=== PATIENT | male | born 1990 | race Caucasian/White ===

== ENCOUNTER 2017-02-14 09:12 | Emergency (ER) | payer BC, OTHER ==
[2017-02-14 10:01] VITALS: BP 134/83
--- NOTE | 2017-02-14 10:30 | UC ---
Throat Pain/Nasal Booker HPI - HPI Summary HPI Summary: SORE THROAT X 2 DAYS NO FEVER, NO CHILLS + COUGH , NASAL CONGESTION - History of Current Complaint Chief Complaint: UCRespiratory Stated Complaint: THROAT Time Seen by Provider: 02/14/17 10:24 Hx Obtained From: Patient Onset/Duration: Gradual Onset, Lasting Days - 2, Still Present Severity: Moderate Cough: Nonproductive Associated Signs & Symptoms: Positive: Hoarseness, Nasal Discharge. Negative: Dysphagia, FB Sensation, Drooling, Sinus Discomfort, Fever, Rash - Allergies/Home Medications Allergies/Adverse Reactions: Allergies Allergy/AdvReac Type Severity Reaction Status Date / Time No Known Allergies Allergy Verified 02/14/17 10:01 Home Medications: Home Medications Pantoprazole TAB (NF) [Protonix TAB (NF)] 20 mg PO DAILY 02/14/17 [History Confirmed 02/14/17] PMH/Surg Hx/FS Hx/Imm Hx Previously Healthy: Yes - Surgical History Surgical History: Yes Surgery Procedure, Year, and Place: right wrist. facial reconstruction 1993 - Family History Known Family History: Negative: Diabetes - Social History Alcohol Use: None Substance Use Type: None Smoking Status (MU): Heavy Every Day Tobacco Smoker Type: Cigars Amount Used/How Often: 3-4 per day - Immunization History Most Recent Influenza Vaccination: 01/2017 Review of Systems Constitutional: Negative Skin: Negative Eyes: Negative ENT: Sore Throat, Nasal Discharge Respiratory: Cough Cardiovascular: Negative Gastrointestinal: Negative Is Patient Immunocompromised?: No All Other Systems Reviewed And Are Negative: Yes Physical Exam Triage Information Reviewed: Yes Appearance: Well-Appearing, No Pain Distress, Well-Nourished Vital Signs: Initial Vital Signs Temp 98.3 F 02/14/17 09:58 Pulse 65 02/14/17 09:58 Resp 16 02/14/17 09:58 BP 134/83 02/14/17 09:58 Pulse Ox 98 02/14/17 09:58 Vital Signs Reviewed: Yes Eyes: Positive: Conjunctiva Clear ENT: Positive: Normal ENT inspection, Hearing grossly normal, Pharyngeal erythema, Nasal congestion Neck exam: Normal Neck: Positive: Supple, Nontender, No Lymphadenopathy Respiratory: Positive: Chest non-tender, Lungs clear, Normal breath sounds Cardiovascular: Positive: RRR, No Murmur, Pulses Normal Skin Exam: Normal Throat Pain/Nasal Course/Dx - Differential Dx/Diagnosis Provider Diagnoses: VIRAL PHARYNGITIS Discharge - Discharge Plan Condition: Stable Disposition: HOME Patient Education Materials: Pharyngitis (ED) Referrals: Nohemy Yanez MD [Primary Care Provider] - If Needed Additional Instructions: negative rapid strep viral sore throat
== END 2017-02-14 10:46 | disposition home or self-care (01) ==
LOC: UCCORT 09:12
DX: J02.9 Acute pharyngitis, unspecified (principal); F17.290 Nicotine dependence, other tobacco product, uncomplicated
CPT/HCPCS: 87651; 99201; G0463

== ENCOUNTER 2018-06-09 17:42 | Emergency (ER) | payer OTHER ==
[2018-06-09 18:22] VITALS: BP 151/90
--- NOTE | 2018-06-09 18:35 | UC ---
General HPI - HPI Summary HPI Summary: PT GOT A NEW TATTOO ON HIS R FOREARM LAST MONDAY. HE APPLIED AN "h2o CREAM" X 4 DAYS THEN A&D X 4 DAYS DIRECTED; HOWEVER, THE SITE HAS NOW BECOME A LITTLE RED AROUND THE INNER EDGE AND IS WEEPY. PT HAS MANY TATTOOS AND NONE HAVE DONE THIS. NO FEVER OR HX MRSA. - History of Current Complaint Chief Complaint: UCSkin Stated Complaint: RT ARM SKIN COMPLAINT Time Seen by Provider: 06/09/18 18:29 Hx Obtained From: Patient Onset/Duration: Gradual Onset Timing: Constant Pain Intensity: 3 Associated Signs & Symptoms: Negative: Edema, Fever - Allergy/Home Medications Allergies/Adverse Reactions: Allergies Allergy/AdvReac Type Severity Reaction Status Date / Time No Known Allergies Allergy Verified 02/08/18 12:03 Home Medications: Home Medications Lisinopril 20 mg PO DAILY 06/09/18 [History Confirmed 06/09/18] PMH/Surg Hx/FS Hx/Imm Hx Cardiovascular History: Hypertension GI/ History: Gastroesophageal Reflux - Surgical History Surgical History: Yes Surgery Procedure, Year, and Place: right wrist. facial reconstruction 1993. right finger surgery - Family History Known Family History: Positive: Non-Contributory Negative: Diabetes - Social History Alcohol Use: None Substance Use Type: Marijuana Substance Use Comment - Amount & Last Used: daily Smoking Status (MU): Heavy Every Day Tobacco Smoker Type: Cigars Amount Used/How Often: 3-4 per day Have You Smoked in the Last Year: Yes - Immunization History Most Recent Influenza Vaccination: 01/2017 Hx Tetanus, Diphtheria Vaccination: Yes Vaccination Up to Date: Yes Review of Systems All Other Systems Reviewed And Are Negative: Yes Constitutional: Positive: Negative Skin: Positive: Rash Eyes: Positive: Negative ENT: Positive: Negative Respiratory: Positive: Negative Cardiovascular: Positive: Negative Gastrointestinal: Positive: Negative Genitourinary: Positive: Negative Motor: Positive: Negative Neurovascular: Positive: Negative Musculoskeletal: Positive: Negative Neurological: Positive: Negative Psychological: Positive: Negative Physical Exam Triage Information Reviewed: Yes Appearance: Well-Appearing Vital Signs: Initial Vital Signs Temp 97.5 F 06/09/18 18:17 Pulse 99 06/09/18 18:17 Resp 16 06/09/18 18:17 BP 151/90 06/09/18 18:17 Pulse Ox 100 02/16/19 18:17 Vital Signs Reviewed: Yes Eyes: Positive: Conjunctiva Clear ENT: Positive: Normal ENT inspection Neck: Positive: Supple Respiratory: Positive: Lungs clear Cardiovascular: Positive: RRR Abdomen Description: Positive: Nontender Bowel Sounds: Positive: Present Musculoskeletal: Positive: ROM Intact Neurological: Positive: Alert Psychological: Positive: Age Appropriate Behavior Skin Exam: Normal, Other - Fresh-colored tattoo on R volar forearm. No swelling but slight weeping, clear fluid plus inner edge of tattoo is mildly red. no streaking or RUE adenoapthy. Course/Dx - Differential Dx - Multi-Symptom Differential Diagnoses: Other - skin infection. - Diagnoses Provider Diagnosis: Cellulitis Discharge - Sign-Out/Discharge Documenting (check all that apply): Patient Departure All imaging exams completed and their final reports reviewed: No Studies - Discharge Plan Condition: Stable Disposition: HOME Prescriptions: Cephalexin CAP* [Keflex CAP*] 500 mg PO TID #21 cap Mupirocin 2% OINT* [Bactroban 2 % Oint*] 1 applic TOPICAL BID 7 Days #1 tube Patient Education Materials: Cellulitis (DC) Referrals: Daren Love DO [Primary Care Provider] - 2 Days Additional Instructions: STOP ALL PRIOR CREAMS - Billing Disposition and Condition Condition: STABLE Disposition: Home
[2018-06-09] MEDS ORDERED: Cephalexin CAP* 500 MG PO ONE (18:38)
== END 2018-06-09 18:49 | disposition home or self-care (01) ==
LOC: UCCORT 17:42
DX: L03.113 Cellulitis of right upper limb (principal); I10 Essential (primary) hypertension; F17.210 Nicotine dependence, cigarettes, uncomplicated; Z79.899 Other long term (current) drug therapy
CPT/HCPCS: 99212; A9270-GY; G0463